=== PATIENT | female | born 1985 | race Caucasian/White ===

== ENCOUNTER 2018-12-17 10:30 | Day surgery (SDC) | payer OTHER ==
[2018-12-14 16:59] VITALS: Ht 160 cm; Wt 67.4 kg
[2018-12-17] VITALS (16 sets, daily range): BP systolic 91–119; BP diastolic 41–75; PULSE 56–90; RESP 10–18
[~2018-12-17] VITALS: Ht 160 cm; Wt 67.4 kg
[~2018-12-17 10:30] MED LIST: CEFAZOLIN 2 GM/50 ML (PMX) 50 ML IVPB SCH; SOD CHLORIDE 0.9% 1,000 ML IV ONE
[2018-12-17] MEDS ORDERED: BACITRACIN/POLYMYXIN 28.35 GM OINT TOP ONE (12:41)
[2018-12-17] MEDS ORDERED: BUPIVACAINE 0.5%/EPI (SDV) 30 ML INJ ONE (12:41)
--- NOTE | 2018-12-17 12:48 | PREAC ---
Date/Time of Note Date/Time of Note DATE: 12/17/18 TIME: 12:47 Anesthesia Eval and Record Evaluation Time Pre-Procedure Interview DATE: 12/17/18 TIME: 12:47 Age 33 Sex female NPO: 8 hrs Preoperative diagnosis scalp mass Planned procedure excision of scalp mass Past Medical History Past Medical History: None Surgery & Anesthesia Issues No known issue Meds Anticoagulation: No Beta Scott within 24 hr: No Reason Beta Scott not given: Pt. not on B-Scott No Active Prescriptions or Reported Meds Current Medications Cefazolin Sodium/ Dextrose 50 ml @ 100 mls/hr PRE-OP IVPB ; Start 12/17/18 at 06:00; Stop 12/17/18 at 15:00 Sodium Chloride 1,000 ml @ 75 mls/hr [id number] ONCE IV ; Start 12/17/18 at 06:00; Stop 12/17/18 at 19:19 Meds reviewed: Yes Allergies Coded Allergies: nitrofurantoin (Verified Allergy, Severe, RASH, SWELLING, AND THROAT CLOSES, 12/17/18) PER PT sulfamethoxazole (Verified Allergy, Severe, RASH, SWEELLING, & CAN' BREATH, 12/17/18) PER PT trimethoprim (Verified Allergy, Severe, RASH, SWEELLING, & CAN' BREATH, 12/17/18) PER PT Allergies Reviewed: Yes Labs/Studies Labs Reviewed: Reviewed by anesthesiologist test: Negative Pre-procedure Exam Last vitals Vital Signs Date Temp Pulse Resp B/P (MAP) Pulse Ox O2 O2 Flow FiO2 Time Delivery Rate 12/17/18 98.2 89 16 115/71 98 Room Air 11:33 (86) Airway: Adequate mouth opening, Adequate thyromental dist Mallampati: Mallampati II Teeth: Normal Lung: Normal Heart: Normal ASA Physical Status ASA physical status: 1 Emergency: None Planned Anesthetic General/MAC: LMA Planned Pain Management Parenteral pain med, Local by surgeon Pre-operative Attestations Prior to commencing anesthesia and surgery, the patient was re-evaluated, there was verification of: *The patient's identity *The results of appropriate recent lab work and preoperative vital signs *The above evaluation not changing prior to induction *Anesthetic plan, risk benefits, alternative and complications discussed with patient/family; questions answered; patient/family understands, accepts and wishes to proceed. CAMILLE HUTCHINS MD Dec 17, 2018 12:48
[2018-12-17] MEDS ORDERED: PROCHLORPERAZINE 10 MG INJ IV PRN (13:00)
[2018-12-17] MEDS ORDERED: LABETALOL HCL 20MG INJ IV PRN (13:00)
[2018-12-17] MEDS ORDERED: EPHEDrine SULFATE 50 MG/5 ML SYG IV PRN (13:00)
[2018-12-17] MEDS ORDERED: OXYCODONE/ACETAMINOPHEN (5/325) TAB PO PRN (13:00)
[2018-12-17] MEDS ORDERED: hydrALAzine 20 MG INJ IV PRN (13:00)
[2018-12-17] MEDS ORDERED: DIPHENHYDRAMINE 50 MG INJ IV PRN (13:00)
[2018-12-17] MEDS ORDERED: HYDROmorphONE 1 MG/5 ML IV SYRINGE IV PRN ×3 (13:00)
[2018-12-17] MEDS ORDERED: MEPERIDINE 25 MG INJ IV PRN (13:00)
[2018-12-17] MEDS ORDERED: FENTAnyl 50 MCG/ML VIAL IV PRN (13:00)
[2018-12-17] MEDS ORDERED: ONDANSETRON 4 MG INJ IV PRN ×2 (13:00→14:00)
[2018-12-17] MEDS ORDERED: MIDAZOLAM 1 MG/ML 2 ML INJ ONE (13:06)
[2018-12-17] MEDS ORDERED: FENTAnyl 50 MCG/ML VIAL ONE (13:16)
[2018-12-17] MEDS ORDERED: LIDOCAINE 2% (SDV) 5 ML INJ ONE (13:16)
[2018-12-17] MEDS ORDERED: PROPOFOL 40 ML ONE (13:16)
[2018-12-17] MEDS ORDERED: CEFAZOLIN 1 GM INJ ONE (13:17)
[2018-12-17] MEDS ORDERED: DEXAMETHASONE 4 MG/ML 5 ML INJ ONE (13:17)
[2018-12-17] MEDS ORDERED: ONDANSETRON 4 MG INJ ONE (13:17)
[2018-12-17] MEDS ORDERED: PHENYLephrine (100 MCG/ML) 5ML SYG ONE (13:24)
--- NOTE | 2018-12-17 13:48 | OPR ---
Date/Time of Note Date/Time of Note DATE: 12/17/18 TIME: 13:44 Operative Report Procedure Date: Dec 17, 2018 Preoperative Diagnosis Scalp mass Postoperative Diagnosis Scalp mass Operation/Procedure Performed Excision of scalp mass Surgeon see signature line Facilities Project Manager None Anesthesia Type: general Anesthesiologist: CAMILLE HUTCHINS MD Estimated Blood Loss: minimal Transfusion none Specimen Scalp mass Grafts/Implants none Complications none Pt Condition Post Procedure: stable Disposition: PACU Indications The patient is a 33-year-old female who presented to the office complaining of a mass in the soft tissues of the scalp. She reports that this has been present for the past couple of years. She reports growth and increasing discomfort. The patient was scheduled for elective excision for symptom relief and definitive pathological diagnosis. All risks and benefits of the procedure including, but not limited to: Wound infection, excessive bleeding, postoperative seroma/hematoma formation, mass recurrence, etc. were all explained to the patient in full detail. The patient fully understood and wished to proceed with the procedure. Informed consent was obtained. Procedure Description The patient was brought to the operating room and placed supine on the operating table. Bilateral sequential compression devices were placed on both lower extremities. A dose of broad-spectrum perioperative intravenous antibiotics was given. After the induction of smooth general anesthesia the patient's scalp was prepped and draped in standard surgical fashion. The mass which was located on the right side of the scalp was preoperatively marked and confirmed with the patient in the holding area. After performance of the surgical timeout 0.5% Marcaine with epinephrine was injected over the area of the mass. Incision was then made over the mass using a 15 blade scalpel. Incision was carried through the skin carefully using sharp dissection. Below the dermis the mass was identified. It was dissected free of surrounding tissues using blunt dissection and delivered through the incision. It was then transected at its base and passed off the field as specimen. It measured approximately 1.5 cm in maximal dimension. Hemostasis was then inspected for and noted to be adequate. The wound cavity was then irrigated with warm saline and the irrigant returned clear. Further local anesthesia was applied around the skin of the incision site. Incision was then reapproximated using interrupted 3-0 nylon sutures. Incision was cleaned and bacitracin ointment was applied. The patient was then awoken from anesthesia and transferred to the recovery room in stable condition. All counts were correct at the end of the case x2. FABRICIO SCHILLING MD Dec 17, 2018 13:48
[2018-12-17] MEDS ORDERED: IBUPROFEN 600 MG TAB PO PRN (14:00)
--- NOTE | 2018-12-17 14:01 | PAC ---
Date/Time of Note Date/Time of Note DATE: 12/17/18 TIME: 14:01 Post-Anesthesia Notes Post-Anesthesia Note Last documented vital signs Vital Signs Date Temp Pulse Resp B/P (MAP) Pulse Ox O2 O2 Flow FiO2 Time Delivery Rate 12/17/18 98.2 89 16 115/71 98 Room Air 11:33 (86) Activity: WNL Respiratory function: WNL Cardiovascular function: WNL Mental status: Baseline Pain reasonably controlled: Yes Hydration appropriate: Yes Nausea/Vomiting absent: Yes Comments BP: 95/60 HR: 75 RR: 15 T: 98 SaO2: 99% CAMILLE HUTCHINS MD Dec 17, 2018 14:01
== END 2018-12-17 15:45 | disposition home or self-care (01) ==
LOC: SDS 10:30
PROVIDERS: ATTEND Surgery
DX: L72.11 Pilar cyst (principal)
CPT/HCPCS: 11423; 84703; 88307; J0690; J1100; J2250; J2370; J2405; J3010; Z7512; Z7610